=== PATIENT | female | born 1990 | race Caucasian/White ===

== ENCOUNTER 2019-10-04 12:49 | Emergency (ER) | payer OTHER, BC ==
[2019-10-04] MEDS ORDERED: Ondansetron 4 MG/2 ML SDV IVPUSH ONE (12:58)
[2019-10-04] MEDS ORDERED: Ketorolac 30 MG/ML SDV IVPUSH ONE (14:22)
--- NOTE | 2019-10-04 14:22 | EDM.PDOC ---
ED HPI GENERAL MEDICAL PROBLEM - General Stated Complaint: LACERATION LT SIDE OF HEAD Time Seen by Provider: 10/04/19 12:55 Source of Information: Reports: Patient History Limitations: Reports: No Limitations - History of Present Illness INITIAL COMMENTS - FREE TEXT/NARRATIVE: c/o head injury playing golf hit in head with golf ball that had been struck at close range, pt staggered, held onto someone, did not fall has pain at her L hindu and blood in her hair, no active bleeding here source of RBC not immediately obvious head and face CTs neg for fx, there is a small amount of subc area pt works as apartment leasing agent she had difficulty seeing out of L eye for about 30 minutes, now able to see fine no n/v felt better after MS 4 mg IV, texting ED ROS GENERAL - Review of Systems Review Of Systems: See Below Constitutional: Reports: No Symptoms HEENT: Reports: No Symptoms Respiratory: Reports: No Symptoms Cardiovascular: Reports: No Symptoms Endocrine: Reports: No Symptoms GI/Abdominal: Reports: No Symptoms : Reports: No Symptoms Musculoskeletal: Reports: No Symptoms Skin: Reports: No Symptoms Neurological: Reports: Headache Psychiatric: Reports: No Symptoms Hematologic/Lymphatic: Reports: No Symptoms Immunologic: Reports: No Symptoms ED EXAM, HEAD INJURY - Physical Exam Exam: See Below Exam Limited By: No Limitations General Appearance: Alert, WD/WN, Mild Distress Head: Other (old blood matted in hair, soft tissue swell at hairline above left eye and extending superiorly and laterally, no ecchymosis) Eyes: Bilateral Eye: EOMI, Normal Inspection, PERRL, Other (left fundus wnl, normal disc, normal A:V ratio, no hyphemia, no periorbital edema) Ears: Normal External Exam, Hearing Grossly Normal Nose: Normal Inspection, Normal Mucousa, No Blood Throat/Mouth: Normal Inspection, Normal Lips, Normal Teeth, Normal Gums, Normal Oropharynx, Normal Voice, No Airway Compromise Neck: Non-Tender, Full Range of Motion, Normal Alignment, Normal Inspection. No: Muscle Spasm Respiratory: No Respiratory Distress, Lungs Clear, Normal Breath Sounds, No Accessory Muscle Use, Chest Non-Tender Cardiovascular: Regular Rate, Rhythm, No Edema, No Gallop, No JVD, No Murmur, No Rub GI/Abdominal Exam: Soft, Non-Tender, No Distention Back Exam: Full Range of Motion, Normal Inspection, NT Extremities: Normal Range of Motion, Non-Tender, No Pedal Edema Neurologic: No Motor/Sensory Deficits, Alert, Normal Mood/Affect, Oriented x 3 Skin: Normal Color, Warm/Dry - [place] Coma Score Best Eye Response ([place]): (4) Open Spontaneously Best Verbal Response ([place]): (5) Oriented Best Motor Response ([place]): (6) Obeys Commands Course - Orders/Labs/Meds Meds: Medications Discontinued Medications Generic Name Dose Route Start Last Admin Trade Name [place] PRN Reason Stop Dose Admin Ketorolac Tromethamine 30 mg 10/04/19 14:22 10/04/19 15:18 Toradol IVPUSH 10/04/19 14:23 30 mg ONETIME ONE Administration Morphine Sulfate 4 mg 10/04/19 12:57 10/04/19 13:09 Morphine IVPUSH 10/04/19 12:58 4 mg ONETIME ONE Administration Ondansetron HCl 4 mg 10/04/19 12:58 10/04/19 13:09 Zofran IVPUSH 10/04/19 12:59 4 mg ONETIME ONE Administration - Re-Assessments/Exams Free Text/Narrative Re-Assessment/Exam: 10/04/19 15:02 there is a small lac of 5 mm dorsally on the left that is sensitive to the touch and oozes old blood to palpitation, there is only 1 mm gap at best and a single staple will not help, pt advised to leave area alone, to allow an eschar to form and to avoid combing or brushing that area for 2 weeks pt understands she has had a concussion and will need to rest this weekend 10/04/19 15:59 visual acuity 20/30 right and left Departure - Departure Time of Disposition: 15:00 Disposition: Home, Self-Care 01 Condition: Good Clinical Impression: Posttraumatic headache, Scalp laceration Contusion of head Qualifiers: Encounter type: initial encounter Contusion of head detail: scalp Qualified Code(s): S00.03XA - Contusion of scalp, initial encounter Concussion Qualifiers: Loss of consciousness presence/duration: without LOC - Discharge Information *PRESCRIPTION DRUG MONITORING PROGRAM REVIEWED*: Not Applicable *COPY OF PRESCRIPTION DRUG MONITORING REPORT IN PATIENT [place]: Not Applicable Instructions: Head Injury, Adult, Laceration Care, Adult, Concussion, Adult Referrals: PCP,None [Primary Care Provider] - Forms: ED Return to Work/School Form Additional Instructions: Rest this weekend. Stay off your feet. Do not go outside except to sit in a chair in the shade. Use ice for 10 minutes for 4 times a day for 2 days. Take ibuprofen 200 mg 3 tabs and acetaminophen 500 mg 2 tabs 4 times a day for 2 days, longer if needed. No work until cleared by your physician. See your physician in 3 days. Return to ED if you feeling worse, including persistent severe headache, persistent nausea and vomiting, difficulty with coordination and/or walking.
--- NOTE | 2019-10-04 15:50 | CT ---
INDICATION: Hit in left temporal-eyebrow area with golf ball. CT HEAD WITHOUT CONTRAST: Spiral 3.75 mm axial sections were obtained through the brain without contrast with sagittal and coronal reconstructions 10/04/19 - no comparisons. Total exam DLP was 1224.99 mGy-cm. The cranium appears to be intact. Paranasal sinuses and mastoid air cells were well aerated. There is a mild degree of calcification in the vertebral arteries and minimal calcification suggested in the right internal carotid artery. The orbits appear to be intact. There is noted evidence of injury to the scalp at the anterolateral aspect of the right frontal bone area. Air is noted in the soft tissues as well as a small scalp hematoma. No cranial fracture site is noted underlying this area. No evidence of subdural or epidural hematoma is noted underlying this area or elsewhere in the brain. No evidence of hemorrhage was seen. No shift of midline structures, ventricular abnormalities or abnormal areas of density were identified. IMPRESSION: Except for evidence of soft tissue injury in the left posterior frontal-anterior parietal area, normal CT Brain without contrast. Report was called to Dr. Gutierrez at 1417 hours. [facility]
--- NOTE | 2019-10-07 07:45 | CT ---
INDICATION: Struck above left eyebrow by golf ball. Temporarily blurred vision on the left. MAXILLOFACIAL CT: Spiral 2.5 mm axial sections were taken through the maxillofacial area with sagittal and coronal reconstructions 10/04/19 - no comparisons. Total exam DLP was 638.19 mGy-cm. The orbit appears to be intact. No maxillofacial fracture sites were demonstrated. The paranasal sinuses appear to be well aerated. Mastoid air cells are well aerated. IMPRESSION: 1. No evidence of maxillofacial fracture site was identified. 2. The area of trauma in the left frontoparietal bone area was not included on this study. Report was called to Dr. Gutierrez at 1417 hours. [facility]
== END 2019-10-04 15:25 | disposition home or self-care (01) ==
LOC: FB.ED 12:49
DX: S06.0X0A Concussion without loss of consciousness, initial encounter (principal); S01.01XA Laceration without foreign body of scalp, initial encounter; G44.309 Post-traumatic headache, unspecified, not intractable; W21.04XA Struck by golf ball, initial encounter; Y93.53 Activity, golf
CPT/HCPCS: 70450; 70486; 96374; 96375; 99283-25; J1885; J2270; J2405